=== PATIENT | male | born 1985 | race Caucasian/White ===

== ENCOUNTER 2023-11-14 00:04 | Emergency (ER) | payer OTHER, SELFPAY ==
[2023-11-14 00:04] VITALS: BMI 25.7
[2023-11-14 00:06] VITALS: BP 175/115
[2023-11-14 00:36] LABS: % Basophils 0.6 % (0-2); % Eosinophils 3.1 % (0-6); % Immature Granulocytes 1.1 % (0-0.5); % Lymphocytes 21.6 % (20.5-51.1); % Monocytes 8.8 % (1.7-9.3); % Neutrophils 64.8 % (42.2-75.2); Absolute Basophils 0.1 10^3/uL (0-0.2); Absolute Eosinophils 0.3 10^3/uL (0-0.7); Absolute Immature Granulocytes 0.1 10^3/uL (0-0.05); Absolute Lymphocytes 1.8 10^3/uL (1.2-3.4); Absolute Monocytes 0.7 10^3/uL (0.1-0.6); Absolute Neutrophils 5.2 10^3/uL (1.4-6.5); Hematocrit 45.3 % (39.0-52.0); Hemoglobin 14.9 g/dL (13.0-18.0); Mean Corp Hgb Conc. 32.9 g/dL (33.0-37.0); Mean Corpuscular Hgb 29.3 pg (27.0-31.0); Mean Platelet Volume 9.6 fL (7.4-10.4); Nucleated Red Blood Cells % 0 % (-); Platelet Count 178 10^3/uL (130-400); Red Blood Cell Count 5.09 10^6/uL (4.70-6.10); Red Cell Dist. Width 12.3 % (11.5-14.5); White Blood Cell Count 8.1 10^3/uL (4.8-10.8)
[2023-11-14 00:53] LABS: ALT (SGPT) 27 U/L (0-50); AST (SGOT) 32 U/L (17-59); Albumin 4.5 g/dl (3.5-5.0); Alkaline Phosphatase 69 U/L (38-126); Blood Urea Nitrogen 18 mg/dl (9-20); Calcium 9.5 mg/dl (8.4-10.2); Carbon Dioxide 27 mmol/L (22-30); Chloride 102 mmol/L (98-107); Glucose 111 mg/dl (70-99); Potassium 3.7 mmol/L (3.5-5.1); Sodium 139 mmol/L (135-145); Total Bilirubin 0.6 mg/dl (0.2-1.3); Total Protein 7.1 g/dl (6.3-8.2); eGFR > 60.00
[2023-11-14 00:55] LABS: Troponin I < 0.012 ng/ml
[2023-11-14 01:23] LABS: D-Dimer < 0.27 ug/mlFEU (0.00-0.50)
--- NOTE | 2023-11-14 02:17 | ED.GENMED ---
History of Present Illness
General
Chief Complaint: Chest Pain
Source: patient
Exam Limitations: none
Time Seen by Provider: 11/14/23 02:04
Travel History
Have you had any contact with someone who has COVID-19?: No
Do you have any symptoms of coronavirus? Fever > 100 degrees, chills, cough, shortness of breath, sore throat, loss of taste or smell, muscle aches, or headache?: No
History of Present Illness
History of Present Illness:
This is a 38 year old male that comes in with c/o left sided chest pain. States that Saturday he was awakened form sleep with severe sharp left sided chest pain. States that it hurt so bad that he was unable to sleep. Then Saturday he was
playing with his children and he laid down and again he started with sharp pain in the left chest. States that around 11-12am he felt better and then at 3am the pain returned. States that he had to sit up to breath in bed due to the sharp pain.
States that this lasted 5 hours. State that on Saturday he went to and they did an ECG and chest and said that this was normal. States that he may have pericarditis and that he needed further evaluation. States that he went to work and the pain
was to bad that at 2pm he took Advil. States that this helped his pain. Then the rasheeda came back and this time he was unable to speak due to the pain for about 1 hours. States that he also had pins and needles in the upper left arm. States that at
7pm the pain was so bad that he took 800mg of Advil. Denies any fever, chills, abd pain, nausea, vomiting, diarrhea, headache, dizziness, urinary burning.
Past History
Past History
ED Past Medical History: None; Negative Asthma, HTN, Hypercholesterolemia or NIDDM
ED Past Surgical History: None
Social History
Tobacco: Non-smoker
Alcohol: None
Personal:
Living: with family
Review of Systems
Review of Systems
All Other Systems: ROS reviewed and negative except as documented in HPI and ROS
Constitutional: Reports no symptoms; Denies fever or chills
EENT: Reports no symptoms
Respiratory: Reports trouble breathing; Denies cough
Cardiac: Reports chest pain
ABD/GI: Reports no symptoms; Denies abdominal pain, nausea, vomiting or diarrhea
: Reports no symptoms; Denies dysuria, frequency or urgency
Musculoskeletal: Reports no symptoms
Skin: Reports no symptoms
Neurological: Reports no symptoms; Denies dizzy or headache
Psychiatric: Reports no symptoms
Phy Exam
General Physical Exam
General Presentation: no apparent distress
General age: appears stated age
General Skin: warm and dry
General Habitus: normal
General Mental: alert
General Hydration: appears well hydrated
ENT Exam
ENT Exam: TM's normal, pharynx normal and neck supple
Eye Exam
Eye Exam: EOMI
Cardiovascular Exam
Cardiovascular Exam: regular rate/rhythm, no edema, no murmur and normal peripheral pulses
Pulmonary Exam
Pulmonary Exam: lungs clear, no respiratory distress, no rales, chest non tender, no crackles, no rhonchi, no wheezing, no cough and other
Gastrointestinal Exam
Gastrointestinal Exam: normal bowel sounds, non tender, soft, no organomegaly, no pulsatile mass and non distended
Musculoskeletal Exam
Musculoskeletal Exam: full ROM and no edema
Skin Exam
Skin Exam: normal color, warm/dry, no rash and no petechia
Psychiatric Exam
Psychiatric Exam: normal mood/affect
Scores
Heart Score for Chest Pain Patients
STEMI patient?: No
History: Slightly or Non-Suspicious
ECG: Normal
Age: </= 45 years
Risk Factors: No Risk Factors
Troponin: </= Normal Limit
Heart Score for Chest Pain Patients: 0
Heart Score Risk: 2.5% MACE over next 6 weeks
Course
Orders/Labs/Results
Orders:
Orders
11/14/23 00:12
Electrocardiogram (*1) Urgent
Reason for Study: Chest Pain
11/14/23 00:13
EKG- Treatment ONCE
11/14/23 00:22
Complete Blood Count/With Diff Urgent
Comprehensive Metabolic Panel Urgent
D-Dimer Urgent
Troponin I Urgent
11/14/23 02:16
CT Chest Pe Study Urgent
Comment: also r/o pericarditis
Reason For Exam: pain with deep breathing or laying down.
11/14/23 02:58
Ketorolac [Toradol] 30 mg IV NOW STA
11/14/23 03:39
Troponin I Urgent
Abnormal Lab Results
11/14/23
00:22
MCHC 32.9 L g/dL
(33.0-37.0)
Abs Immat Gran (auto) 0.1 H 10^3/uL
(0-0.05)
Absolute Monos (auto) 0.7 H 10^3/uL
(0.1-0.6)
Immature Gran % 1.1 H %
(0-0.5)
Glucose 111 H mg/dl
(70-99)
11/14/23 00:22
11/14/23 00:22
glucose nonfasting. D-dimer <0.27, Troponin <0.012
Vital Signs
Initial and Last Documented VS:
Initial Vital Signs
Temp Pulse Resp BP Pulse Ox
98.0 F 80 16 175/115 99
11/14/23 00:06 11/14/23 00:06 11/14/23 00:06 11/14/23 00:06 11/14/23 00:06
Last Documented Vital Signs
Temp Pulse Resp BP Pulse Ox
98.0 F 80 16 175/115 99
11/14/23 00:06 11/14/23 00:06 11/14/23 00:06 11/14/23 00:06 11/14/23 00:06
MDM/Problems Addressed
Differential Diagnosis Includes:
Pericarditis, Costochondritis, PE
MDM/Problems Addressed:
This is a 38 year old male that comes in with c/o chest pain. State that he has been getting this sharp pain in the left chest. On Saturday it awoke him from sleep. States that when he lays down the pain gets worse. Then on Saturday he had the pain
at work and it was so bad that he could hardly speak. Patient was seen at and told that he needed further evaluation.
Will get labs and CT chest. When laying patient back to to has abd assessment, patient developed severe pain in the chest when laying down.
Back into see patient. Explained that his blood work is normal, his CT scan is negative for any PE or Aneurysm. No pleural effusion or Pneumothorax. Explained that this could be Pleurisy or the other concern would be Cardiac spasm. Will place
patient on the Cardiology hot like. Will also give patient a prescription for Naproxen for the next several day. Patient to return with increased pain or any other concerns.
Chronic conditions affecting care:
NA
Acute Exacerbation and/or Progression of Chronic Illness:
NA
*Radiology
Radiology exam reviewed: radiology read reviewed (CT night hawk-Good bolus, moderate motion. NO evidence of Pulmonary embolism. No evidence of aortic dissection or aneurysm. No focal airspace consolidation. No pleural effusion or pneumothorax. )
*Pulse Oximetry
Patient hypoxic: no
*EKG
Interpreted by ED Provider?: Yes
Heart Rate: 64
Rate: normal
Rhythm: sinus
[place]: normal axis
Interval: normal interval
QRS Pattern: normal QRS
Ischemia: no ischemia
*Critical Care Note
Total Time (30-74mins, 75-104mins- exclusive of procedures): Not Applicable
ED Attending Note
-
Portions of this chart may have been created with voice recognition software.� Occasional wrong word or��sound alike� substitutions may have occurred due to the inherent limitations of voice recognition software.
Discharge Plan
Departure
Patient Disposition: Home (Routine Discharge)
Date of Disposition: 11/14/23
Time of Disposition: 03:46
Patient with high blood pressure during this ER visit?: Yes
Condition: Good
Covid-19: Not Applicable
Discharge Problem:
Chest pain, Acute costochondritis
Instructions: Costochondritis (DC), Chest Pain DCA Follow Up, BLOOD PRESSURE
Prescriptions:
New
naproxen 500 mg tablet,delayed release (DR/EC)
500 mg PO BID PRN (Reason: Pain) Qty: 10 0RF
Activity Restrictions/Additional Instructions:
As discussed, your blood work is normal along with your CT of the chest. This may be costochondritises/pleurisy which are inflammatory processes. You will have a prescription sent to your Pharmacy for Naproxen. Please take this as directed. You
have also been place on the Cardiology hot line. This means that you will be called by the [facility] office and seat up for an appointment and further evaluation. IF YOU HAVE INCREASED OR CHANGING PAIN, OR YOU HAVE ANY OTHER CONCERNS PLEASE
RETURN TO THE EMERGENCY ROOM.
Interventions
Interventions:
*Risk Screen - Suicide Last Done: 11/14/23 00:06
*Neglect/Abuse Screening Last Done: 11/14/23 00:06
*ED COVID-19 Vaccine History Last Done: 11/14/23 00:06
Discharge Date and Time
Print Language: [id number]
[2023-11-14 03:00] VITALS: BP 155/99
[2023-11-14] MEDS: TORADOL 30 MG IV (03:40)
[2023-11-14 04:00] VITALS: BP 123/83
[2023-11-14 04:13] LABS: Troponin I < 0.012 ng/ml
== END 2023-11-14 04:30 | disposition home or self-care (01) ==
LOC: EMR 00:04
PROVIDERS: Clinical Nurse Specialist Family Health; EMERGENCY PHYSICIAN Emergency Medicine
DX: R07.89 Other chest pain (principal); M94.0 Chondrocostal junction syndrome [Tietze]; R03.0 Elevated blood-pressure reading, without diagnosis of hypertension
CPT/HCPCS: 99285; 96374; 71275; 80053; 84484; 85025; 85379; 93005; Q9967